=== PATIENT | male | born 1985 | race Caucasian/White ===

== ENCOUNTER → 2018-08-26 09:15 | Outpatient (CLI) | payer OTHER, SELFPAY ==
[2018-08-26 11:13] LABS: Anion Gap 11 (5-15); BUN 14 mg/dL (7-18); BUN/Creat Ratio 14.7 RATIO (10-20); Calcium,Total 8.8 mg/dL (8.5-10.1); Chloride 106 mmol/L (98-107); Cholesterol 208 mg/dL (200); Creatinine, Serum 0.96 mg/dL (0.70-1.30); EST Glomerular Filtration Rate 95 mL/min (>60); Est Glom Filt Rate - Afr Amer 115 mL/min (>60); Glucose 100 mg/dL (74-106); High Density Lipoprotein 37 mg/dL; Potassium 4.4 mmol/L (3.5-5.1); Sodium Level 142 mmol/L (136-145); Thyroid Stim Hormone (TSH) 1.45 uIU/mL (0.358-3.74); Triglycerides 123 mg/dL; Very Low Density Lipoprotein 25 mg/dL (5-40)
== END ==
PROVIDERS: Family Provider Family Medicine; PCP Family Medicine; Referring Provider Family Medicine; Visit Provider Family Medicine
DX: Z00.00 Encounter for general adult medical examination without abnormal findings (principal)
CPT/HCPCS: 36415; 80048; 80061; 84403; 84443

== ENCOUNTER → 2018-09-04 08:07 | Outpatient (CLI) | payer OTHER, SELFPAY ==
--- NOTE | 2018-09-03 14:45 | LES_PTH ---
PATIENT: JAVY OROZCO LOC: [facility] U#:[id number] AGE/SX: 40/M ROOM: RE09/04/[address]: Dr. Hans Julien MD : 1985 BED: DIS: SPEC #: [id number] RECD: 09/03/18 17:42 STATUS: CAMMIE NANCY #: [id number] GUY: 09/03/18 14:[address]: Hans Julien DEPT: SURGICAL PATHOLOGY RECD BY: Mj Dalton Tissues: A - Skin of back, NOS B - Skin of back, NOS Procedures: Surgery Specimen Level III HEADER OPERATION: Skin neoplasm removal PRE-OP DIAGNOSIS: Suspicious skin neoplasm TISSUE SUBMITTED: A - Skin neoplasm on back, B - Skin neoplasm on back MICROSCOPIC DIAGNOSIS A. Skin neoplasm of back, excision: Consistent with epidermal inclusion cyst. B. Skin neoplasm of back, excision: Consistent with epidermal inclusion cyst. AM:tracy 09/05/18 MICROSCOPIC DESCRIPTION Slides are reviewed. GROSS DESCRIPTION A - Received in fixative is one container labeled with the patient's name and designated skin neoplasm. The specimen consists of an irregular fragment of pink-gleason soft tissue with possible adherent skin measuring 2.8 x 1.5 x 0.6 cm. The specimen is inked, serially sectioned and totally submitted in two cassettes. B - Received in fixative is one container labeled with the patient's name and designated skin neoplasm. The specimen consists of an irregular fragment of pink-gleason soft tissue with possible adherent skin measuring 2.5 x 1.2 x 0.7 cm. The specimen is inked, serially sectioned and totally submitted in one cassette. / AM:tracy 09/04/18 TC:5 [facility]: [id number] x2
== END ==
PROVIDERS: Family Provider Family Medicine; PCP Family Medicine; Referring Provider Family Medicine; Visit Provider Family Medicine
DX: D48.5 Neoplasm of uncertain behavior of skin (principal)
CPT/HCPCS: 88304; 88305

== ENCOUNTER → 2018-12-08 11:11 | Outpatient (CLI) | payer OTHER, SELFPAY ==
--- NOTE | 2018-12-08 11:18 | RAD_ITS ---
STUDY: X-RAY - LEFT KNEE REASON FOR EXAM: Male, 33 years old. Pain. TECHNIQUE: 4 view(s) of the knee. COMPARISON: None. FINDINGS: Normal visualized distal femur. Normal visualized proximal tibia and fibula. Normal proximal tibiofibular articulation. There is no demonstrated fracture. Normal medial femorotibial compartment. Normal lateral femorotibial compartment. Normal patellofemoral articulation. There is no demonstrated joint effusion. The soft tissue structures are unremarkable. RAD/Knee 4 or More Views IMPRESSION: Normal x-ray examination of the knee. Electronically Signed: Roberto Lynn MD at 16:58 EDT , Service support ,
== END ==
PROVIDERS: Family Provider Family Medicine; PCP Family Medicine; Referring Provider Family Medicine; Visit Provider Family Medicine
DX: M25.562 Pain in left knee (principal)
CPT/HCPCS: 73564

== ENCOUNTER → 2020-01-11 14:52 | Outpatient (CLI) | payer OTHER, SELFPAY ==
[2020-01-11 18:49] LABS: Anion Gap 5 (5-15); BUN 12 mg/dL (7-18); BUN/Creat Ratio 14.1 RATIO (10-20); Calcium,Total 8.4 mg/dL (8.5-10.1); Chloride 108 mmol/L (98-107); Cholesterol 226 mg/dL (200); Creatinine, Serum 0.85 mg/dL (0.70-1.30); EST Glomerular Filtration Rate 108 mL/min (>60); Est Glom Filt Rate - Afr Amer 131 mL/min (>60); Glucose 112 mg/dL (74-106); High Density Lipoprotein 34 mg/dL; Potassium 3.5 mmol/L (3.5-5.1); Sodium Level 138 mmol/L (136-145); Triglycerides 222 mg/dL; Very Low Density Lipoprotein 44 mg/dL (5-40)
== END ==
PROVIDERS: PCP Family Medicine; Referring Provider Family Medicine; Visit Provider Family Medicine
DX: I10 Essential (primary) hypertension (principal)
CPT/HCPCS: 36415; 80048; 80061

== ENCOUNTER → 2020-05-17 15:13 | Outpatient (CLI) | payer OTHER, SELFPAY | PROVIDERS: PCP Family Medicine; Referring Provider Family Medicine; Visit Provider Family Medicine | DX: Z20.828 Contact with and (suspected) exposure to other viral communicable diseases (principal) | CPT/HCPCS: 87635; U0003 ==